=== PATIENT | male | born 1975 | race Caucasian/White ===

== ENCOUNTER 2017-08-11 16:17 | Inpatient (IN) ==
[2017-08-11] MEDS ORDERED: KEPPRA 500 MG in NS 100 ML IV ONE (16:34)
--- NOTE | 2017-08-11 16:38 | PROVIDER DOCUMENTATION ---
HPI-Neurological Disorder - General Chief Complaint: Seizure Stated Complaint: SEIZURE,RT LEG DEFORMITY Time Seen by Provider: 08/11/17 16:27 Source: patient Allergies/Adverse Reactions: Patient Allergies Allergy/AdvReac Type Severity Reaction Status Date / Time No Known Allergies Allergy Verified 08/11/17 16:40 Home Medications: Home Medication List Medication Instructions Recorded Confirmed Last Taken Type Pregabalin [Lyrica] 75 mg PO BID 08/11/17 08/11/17 Unknown History - History of Present Illness-Neuro Nature of Presenting Problem: Patient is a pleasant 42 yrs old gentleman who has come with possible seizures and a fall on the right leg . He states that probably he had seizures before but never diagnosed for that and not on the seizure medication ever.All he remembers for today is that he was at work when suddenly collapsed on his right leg and then tried to get up , collapsed again. It happened multiple times per him . Per the people witnessing at that time told the EMS that he had multiple seizure like activity as well with shaking of the whole body . He was found to be in post ictal confusion as well. Now improved . Able to give answers appropriately . Though not remember all details. Severity: reports: moderate Onset/Duration: reports: 1 hour ago Timing: reports: improving Context: reports: seizure activity Character of Altered Mental Status: reports: seizure activity, other (Now improved) Any recent trauma/injury?: reports: none New weakness or altered sensation location:: reports: none Cognitive Baseline: alert, oriented x3 Associated Symptoms: reports: denies symptoms Similar Symptoms Previously?: Yes Recently seen or treated by another doctor?: No - Seizure First time to have a seizure?: No Witnessed seizure?: Yes Episode details: reports: unknown duration, unknown number Episode Frequency: other (Never treated for that) Preceding symptoms/context:: none Character of Seizure: reports: lost consciousness, generalized shaking all over Post-ictal Symptoms: reports: confusion Seizure related injury: lower extremity Review of Systems - Adult - REVIEW OF SYSTEMS - ADULT Constitutional: reports: no symptoms reported Eyes: reports: no symptoms reported Ears, Nose, Mouth & Throat: reports: no symptoms reported Cardiovascular: reports: no symptoms reported Respiratory: reports: no symptoms reported Gastrointestinal: reports: no symptoms reported Musculoskeletal: reports: see HPI Integumentary: reports: no symptoms reported Neurological: reports: see HPI Psychiatric: reports: no symptoms reported Endocrine: reports: no symptoms reported Hematologic/Lymphatic: reports: no symptoms reported Allergic/Immunologic: reports: no symptoms reported Past History - Adult - PAST MEDICAL HISTORY-ADULT Review of Records: reports: Nursing Assessment Review Major Childhood Illnesses: reports: denies history Cardiovascular: reports: blood clots (DVT) Musculoskeletal: reports: arthritis - PRIOR SURGERIES/PROCEDURES Surgical/Procedure History: reports: tonsillectomy - IMMUNIZATION STATUS Childhood Immunizations: See Nurse Assessment Flu Vaccine: See Nurse Assessment - FAMILY HISTORY Family History: reviewed, not pertinent Physical Exam- Neurological - Physical Exam-Neuro Initial Vital Signs Reviewed: Yes General Appearance: appears well, alert, no apparent distress Eye Exam: bilateral eye: normal inspection, PERRL, EOMI HENMT: normocephalic/atraumatic, moist mucous membranes, TMs normal Head Injury: no evidence of injury Neck: non-tender Respiratory: lungs clear Cardiovascular: regular rate, rhythm, no edema Abdominal Exam: non tender, soft Extremity: other (Right leg in splint by EMS. Tender on the calf and swelling noted.) wireless engineer Exam: normal hearing, normal speech Coordination/Gait: normal finger to nose Motor/Sensory: no motor deficit, no sensory deficit Neurologic: wireless engineer II-XII nml as tested, grossly normal, no motor/sensory deficits , other Integumentary: normal color, normal turgor, warm/dry Psych/Mental Status: normal mood/affect, normal thought content, normal thought process, oriented x 3 Progress - PLAN OF CARE/RESULTS Progress/Plan/Lab Results: Vital Signs - 8 hr 08/11/17 16:22 Temperature 97.7 F Pulse Rate 83 Respiratory Rate 20 Blood Pressure 131/82 O2 Sat by Pulse Oximetry 97 Orders Category Date Time Status CT HEAD W/O CONTRAST [CT] Stat Exams 08/11/17 16:32 Completed LOWER LEG-RIGHT [RAD] Urgent Exams 08/11/17 16:32 Completed Hydrocodone/APAP 7.5 mg/325 mg [Riley-7.5] Med 08/11/17 17:12 Discontinued 1 each PO NOW ONE Levetiracetam [Keppra] 500 mg Med 08/11/17 16:34 Discontinued 0.9% Sodium Chloride Inj [Ns] [address] head is negative for any finding. The Leg x ray shows right tibia fracture. Started him here on Keppra IV. Giving him pain med. Getting his drug screen test as well and all the blood work . He was reluctant to be admitted due to his kids at home but has agreed now. Have discussed with Hospitalist service Lizzy Frandy the [facility] and he has agreed for admission . Notifying Dr. Collado the [facility] as well. Departure - Departure Date of Disposition Decision: 08/11/17 Time of Disposition Decision: 17:47 DIAGNOSIS: Seizure Disposition: HOME 01 Certified Medical Emergency: Emergent Condition: Stable Referrals and Follow-Ups: Binta Saini CRNP [Primary Care Provider] - Call for Appoint. 1-2days - Critical Care Note This patient required my direct & personal management of CC.: No Attestation - Physician/ JACQUELINE Attestation Patient care was provided by Advanced Practice Provider:: No The physician spent face to face time with patient:: Yes Advanced Practice Provider documentation review:: Supervising physician onsite and consulted in the evaluation and care of this patient. The physician did have a face to face encounter with the patient.
--- NOTE | 2017-08-11 16:59 | Diag Imaging Result Doc PS360 ---
EXAM: CT HEAD W/O CONTRAST HISTORY: Seizure TECHNIQUE: CT brain without contrast. Dose reduction protocol. COMPARISON: 04/12/2012 FINDINGS: No parenchymal hemorrhage. No epidural or subdural hematoma. No subarachnoid hemorrhage. No mass identified on this noncontrasted exam. No hydrocephalus. No sinus opacification. IMPRESSION: No hemorrhage. Negative brain CT without contrast. Electronically signed by Jonh Mai 08/11/2017 4:56 PM
--- NOTE | 2017-08-11 17:10 | Diag Imaging Result Doc PS360 ---
EXAM: LOWER LEG-RIGHT HISTORY: Fall TECHNIQUE: Four views COMPARISON: None. FINDINGS: There is an oblique fracture through the proximal fibula as well as an oblique fracture through the midshaft of the tibia. The tibial fracture is displaced approximately one centimeter with the proximal portion lying anterior to the more distal shaft. The fibular fracture is by only several millimeters. IMPRESSION: Fractures to the proximal fibula and mid to distal tibia. Electronically signed by Jonh Mai 08/11/2017 5:07 PM
[2017-08-11] MEDS ORDERED: NORCO-7.5 PO ONE (17:12)
[2017-08-11] MEDS ORDERED: DILAUDID IV ONE ×3 (17:50→19:58)
[2017-08-11] MEDS ORDERED: DILAUDID ONE (18:01)
[2017-08-11 18:38] LABS: MANUAL DIFF NEEDED? NO
[2017-08-11 18:41] LABS: BASO% 0.1 % (0.0-0.8); EOS# 0.02 X1000 (0.0-0.7); EOS% 0.1 % (0.0-10.0); HEMOGLOBIN 13.7 g/dL (14.0-18.0); IMM GRAN# 0.04 X1000 (0.0-0.04); IMM GRAN% 0.3 % (0.0-0.5); LYMPH# 1.77 X1000 (1.2-3.4); MCH 30.8 PG (27-31); MCHC 34.3 g/dL (33-37); MCV 89.9 FL (81-99); MONO# 0.69 X1000 (0.11-0.59); MONO% 4.7 % (1.7-9.3); MPV 9.2 FL (7.4-10.4); NEUT% 82.8 % (42.2-75.2); PLT 290 X1000 (130-400); RBC 4.45 XMIL (4.7-6.1)
[2017-08-11 19:05] LABS: AGAP 10; BUN 7 mg/dL (8-22); CHLORIDE 104 mmol/L (98-107); COSMO 279; SODIUM 141 mmol/L (136-145); TCO2 27 mmol/L (25-35)
[2017-08-11 20:17] LABS: URINE CULTURE NEEDED? NO; URINE MICRO REVIEW NEEDED? NO; URINE SOURCE CLEAN CATCH
[2017-08-11 20:20] LABS: BILIRUBIN URINE NEGATIVE (NEGATIVE); BLOOD URINE NEGATIVE (NEGATIVE); COLOR YELLOW; GLUCOSE URINE NEGATIVE (NEGATIVE); LEUKOCYTES URINE NEGATIVE (NEGATIVE); NITRITE URINE NEGATIVE (NEGATIVE); PH URINE 6.5; PROTEIN URINE TRACE mg/dL (NEGATIVE); TURBIDITY URINE CLEAR (CLEAR); UROBILINOGEN URINE NORMAL (NORMAL)
[2017-08-11 20:22] LABS: UR EPITHELIAL CELLS <10 /HPF (<10); URINE BACTERIA NEGATIVE /HPF; URINE RBC <10 /HPF (<10); URINE WBC <10 /HPF (<10)
[2017-08-11] MEDS ORDERED: DILAUDID IV PRN (21:18)
[2017-08-11] MEDS ORDERED: ZOFRAN IV PRN (21:18)
[2017-08-11] MEDS: OFIRMEV 1000 MG/ISOTONIC SOLN 1,000 MG/100 ML BOTTLE IV SCH (22:20)
[2017-08-11] MEDS: LOVENOX SUBQ SCH (22:24)
[2017-08-12] MEDS: DILAUDID IV PRN ×6 (01:20→20:21)
[2017-08-12] MEDS: OFIRMEV 1000 MG/ISOTONIC SOLN 1,000 MG/100 ML BOTTLE IV SCH ×4 (04:53→23:12)
[2017-08-12] MEDS: KEPPRA 500 MG in NS 100 ML IV SCH ×2 (05:58→18:14)
[2017-08-12] MEDS ORDERED: FENTANYL ONE (08:41)
[2017-08-12] MEDS ORDERED: ROBINUL ONE (08:56)
[2017-08-12] MEDS ORDERED: VERSED ONE (08:56)
[2017-08-12] MEDS ORDERED: PEPCID ONE (08:57)
[2017-08-12] MEDS ORDERED: KEFZOL 2 GM/D5W 2 GM/50 ML IVPB ONE (09:04)
[2017-08-12] MEDS ORDERED: DIPRIVAN 1% ONE (09:14)
[2017-08-12] MEDS ORDERED: XYLOCAINE-MPF 2% ONE (09:20)
[2017-08-12] MEDS ORDERED: QUELICIN (DOSE) ONE (09:20)
--- NOTE | 2017-08-12 10:37 | HISTORY AND PHYSICAL ---
CHIEF COMPLAINT: Seizure and leg fracture. HISTORY OF PRESENT ILLNESS: This is a 42-year-old, white male, who claims to have a history of undiagnosed and untreated seizures since late teen-calix. He stated that he was standing leaning against a boat talking with someone when he suddenly fell out and started shaking. He immediately popped up, but felt this sensation coming on again and tried to walk to a picnic table where he fell fracturing his right tibia and fibula. Reportedly from the history given to city maintenance manager by witnesses, he had 6 additional seizures there. The patient stated this started in late teen-calix, and he might have 1 seizure per year. Over time, this has developed into more frequent and more severe episodes. He states he has never been fully evaluated for seizure disorder. The patient traces his health problems to the time into early adulthood when he became involved with his children and in order to avoid R involvement, he stopped smoking marijuana. He states that his health has gone downhill since that time. The patient worked in a [email or web address] for about 15 years, but is now disabled due to chronic "crippling arthritis" and fibromyalgia. He has been out of his [place] that he gets from [facility] for a few days now. He states that he rarely takes it, but really relies on the combination of Lyrica and marijuana to ease his pain. He did state that he took a Percocet today that someone gave him. PAST MEDICAL HISTORY: 1. Arthritis. 2. Other chronic pain. 3. Fibromyalgia. 4. Undiagnosed seizure disorder. SOCIAL HISTORY: The patient has custody of his 3 children which he fathered through 2 different women. He does not smoke or use alcohol. He does use marijuana and narcotics when he needs them. He is most consistent with his use of Lyrica. He is totally disabled. ALLERGIES: No known drug allergies. REVIEW OF SYSTEMS: The patient denies any ongoing problems of late. He has not been ill or had fever. He has had no cough, wheezing or shortness of breath. He denies any chest pain or palpitations. He has normal bowel function and normal appetite. He has no genitourinary symptoms. Has a good urine flow. At the present time, he is complaining of pain in his right leg. He states that he can feel it grinding together. He was not placed in a fixative device of any kind at the time of my examination. He states he does have sensation in his lower extremities. He denies any head injury. PHYSICAL EXAMINATION: GENERAL: He is a well-developed, well-nourished, white male, who is in no acute distress. His speech is clear and lucid. He seems to be oriented. NECK: Unremarkable. LUNGS: Clear to auscultation in all liang. CARDIOVASCULAR: Regular. ABDOMEN: Shows bowel sounds are present. He is nontender and nondistended. He has normal size liver by percussion. GENITOURINARY/RECTAL: Not performed. EXTREMITIES: Patient's knees are facing straight up, but his right foot and ankle are rotated outwardly, and there is a small visible defect in the mid tibial area at the site of the break. He does have an abrasion on that area, but I do not see evidence of penetration by bone fragment or the main body of the tibia. I am able to feel dorsalis pedis pulses on the right foot. He has normal capillary refill. NEUROLOGIC: The patient appears to be lucid, oriented, appropriate and conversive. I do not detect any focal neurologic examinations on observation. He seems to move his arms well and can move his left leg, but is trying to keep the right leg still. LABORATORIES: White cell count of 14.7, hematocrit of 40, electrolytes were normal. Urinalysis is negative. Urine drug screen was not performed. X-ray shows a mid lower oblique tibial fracture with reasonable alignment given the severity of the injury. He has a proximal fibular fracture which has reasonable alignment as well. ASSESSMENT AND PLAN: 1. The patient will be admitted to the surgical floor. Dr. Collado has already been consulted for fracture care. At the time of my dictation, Dr. Collado was examining the patient, and trying to reduce him into a splint for proposed surgery tomorrow morning. Dr. Collado will write any antibiotic or other orthopedic orders he feels are appropriate. 2. The patient's seizure disorder could be multifactorial, not the least of which could be intermittent drug use. He was loaded with Keppra in the ER and I plan to continue Keppra IV through his surgery. He can then be transitioned to oral. If he rebounds successfully from surgery, we might also entertain a neurological consultation, because unlikely he will be able to follow up as an outpatient. 3. The patient's chronic pain will likely be addressed sufficiently by postoperative medications. 4. The patient will be put on Lovenox for DVT prophylaxis. He will be n.p.o. and confined to bed rest at the present time. cc: Jarred Parekh MD
[2017-08-12] MEDS ORDERED: BACITRACIN OINTMENT ONE (10:51)
--- NOTE | 2017-08-12 11:05 | CONSULTATION ---
DATE OF CONSULTATION: 08/12/2017 CHIEF COMPLAINT: Right leg pain. HISTORY: Patient is a 42-year-old male, that was presented to [facility] after he sustained a seizure while at home. He claims he was talking to his friend's dad while standing up and had a seizure, and ended up with a significant amount of right leg pain. Orthopedics was asked for consultation in regards to a right midshaft tibia fracture. The patient's pain is well under control at this time with medication. He is able to move his toes. Denies significant numbness in the lower extremities. PAST MEDICAL HISTORY: Includes COPD and fibromyalgia. PAST SURGICAL HISTORY: Of a tonsillectomy. PAST SOCIAL HISTORY: He denies any tobacco use. Does drink alcohol on occasion, but denies any illegal drug use. He does have 3 kids. ALLERGIES: No known drug allergies. REVIEW OF SYSTEMS: A 14 point review of systems which was obtained was negative for as above. PHYSICAL EXAM: General: Vital signs are stable. He is alert and oriented x 3. No acute distress. HEENT: Pupils equal, round, reactive to light and accommodation. Extraocular movements are intact. No blood in the nares. Head is normocephalic. Neck: Trachea is midline. Supple. Cardiovascular: There is brisk capillary refill in peripheral extremities. Lungs: Normal aeration is noted. Neurologic: Cranial nerves 2-12 are grossly intact. There are no focal deficits. Sensation is intact distally in all distal dermatomal patterns. Musculoskeletal: Examination of right lower extremity shows his calf to be soft. He is able to actively move his toes and mildly move his ankle. He does have some slight discomfort when moving the ankle, but is not out of proportion. No paresthesias are noted and his calf continues to be soft and there is no sign of compartment syndrome. ASSESSMENT: 42-year-old male status post seizure with a right midshaft tibia fracture, closed. PLAN: At this time we will place him into a splint and plan for intramedullary nailing. I discussed with him about the surgery including the risks, benefits, and complications associated with it. There are no signs of compartment syndrome. We will watch him closely overnight. I will follow him into tomorrow. cc: Ajith Collado MD
[2017-08-12] MEDS: DILAUDID ONE ×5 (11:22→11:57)
[2017-08-12] MEDS ORDERED: TORADOL ONE (11:33)
[2017-08-12] MEDS: NORCO-10 PO PRN ×2 (14:37→18:32)
[2017-08-12 15:32] LABS: UR AMPHETAMINES QUAL NONE DETECTED (NONE DETECT); UR BARBITUATES QUAL NONE DETECTED (NONE DETECT); UR BENZODIAZEPIN QUAL PRESUMPTIVE POSITIVE (NONE DETECT); UR CANNABINOIDS QUAL PRESUMPTIVE POSITIVE (NONE DETECT); UR COCAINE QUAL NONE DETECTED (NONE DETECT); UR METHADONE QUAL NONE DETECTED (NONE DETECT); UR OPIATES QUAL NONE DETECTED (NONE DETECT); UR OXYCODONE QUAL PRESUMPTIVE POSITIVE (NONE DETECT); UR PCP QUAL NONE DETECTED (NONE DETECT)
[2017-08-12] MEDS: LYRICA PO SCH (20:21)
[2017-08-12] MEDS: PERIDEX MT SCH (20:21)
[2017-08-12] MEDS: LOVENOX SUBQ SCH (20:23)
[2017-08-13] MEDS: DILAUDID IV PRN ×5 (02:02→19:32)
--- NOTE | 2017-08-13 03:54 | PROGRESS NOTE ---
DATE: 08/12/2017 SUBJECTIVE: Today, Mr. Stubbs refers to be doing a little better. Still has some pain in the right leg. Apparently, Mr. Stubbs is known to have some seizure disorder but has not been formally diagnosed. Was at some friend's house, went in seizures, sat down, and broke his right leg. He was brought in. Found to have a right proximal fibular fracture and mid tibia fracture which has been surgically intervened by orthopedics this morning. PHYSICAL EXAMINATION: Vital Signs: Blood pressure is now 131/73, pulse of 77, respirations are 18, temperature is 97.9. General Examination: Mr. Stubbs is a 42-year-old, male. He is in bed. He is not in any distress. HEENT: Mucosa is pink and moist. Anicteric and acyanotic. Neck: Supple. Chest: Clear. Cardiovascular: Regular rate and rhythm. Abdomen: Soft, nontender. Bowel sounds are present. Extremities: No pedal edema. The right is currently in orthopedic cast. Pulses are present. SOLUTIONS DELIVERY CONSULTANT: Patient is awake, oriented. There is no focal neurological deficit. LABORATORY DATA: WBC is 14.72, hemoglobin is 13.7, platelet count of 290,000. Chemistry is also reviewed, unremarkable. X-ray of the lower extremity when he came in showed fractures to the proximal fibula and mid to distal tibia. ASSESSMENT: 1. Right tibia and fibular fractures, status post intervention. 2. Seizure episode. I think patient does have an underlying seizure disorder which has not been formally diagnosed. He would need to be seen by neurology. He is currently on Keppra. 3. Chronic pain syndrome. 4. History of fibromyalgia. PLAN: In general, I think Mr. Stubbs is relatively stable. We are going to continue with his pain medications and continue with the Keppra at least for now. He will be seen by neurology either as an inpatient or as an outpatient for other evaluations. cc: Lawrence Pelaez MD
--- NOTE | 2017-08-13 04:46 | OPERATIVE NOTE ---
PROCEDURE DATE: PREOPERATIVE DIAGNOSES: 1. Right closed midshaft tibia fracture. 2. History of seizure disorder. POSTOPERATIVE DIAGNOSES: 1. Right closed midshaft tibia fracture. 2. History of seizure disorder. PROCEDURE PERFORMED: 1. Closed reduction of the right midshaft tibia. 2. Intramedullary nailing with internal fixation of the right tibia. SURGEON: Ajith Collado MD. REFINISH TECHNICIAN: None. HISTORY: The patient is a 42-year-old male who presented to the ER here at [facility] with complaints of right leg pain. He sustained a seizure and was left with a right tibia fracture. I did see him in the hospital to assure there were no signs of compartment syndrome. He did rest comfortably overnight. After evaluation, it was planned to proceed with intramedullary nailing of the right tibia. I discussed with him the risks, benefits, and complications associated with the procedure prior to proceeding. SPECIMENS: None. ANESTHESIA: General endotracheal. IMPLANTS: Include a 10 mm x 345 mm titanium Synthes jennyfer. COMPLICATIONS: None. DISPOSITION: Patient was sent to PACU in stable condition. ANTIBIOTICS: Two grams of Ancef were given IV preoperatively within 30 minutes of the incision. PROCEDURE NOTE: Patient was taken back to the operative suite and placed in the supine position. At that time, a time-out was performed for a right intramedullary nailing which was confirmed by myself and all assistants. The lower extremity was shaved and prepped using chlorhexidine scrub and ChloraPrep x2, and then draped in the normal sterile fashion. A triangle was also used at this time. At that time, I started with identifying my patella. I made a midline incision over the anterior aspect of the knee with blunt dissection down to the patellar tendon. I made a medial parapatellar arthrotomy. I then flexed the knee to place the K-wire into appropriate position. The K-wire was placed into position in the AP and lateral views. At that time, I placed a reamer, followed by a guide into the knee and reamed to 13 mm. I then placed a guidewire down the tibial shaft after reduction was performed. I then passed the guidewire into the distal aspect of the fracture fragment. At that time, I started reaming. I sequentially reamed from a size 8.5 up to an 11 for a size 10 nail. I carefully reamed without the tourniquet being inflated. I then decided on a 10 nail. At that time, I then decided on the jennyfer. The jennyfer was then passed across the fracture site and was placed into the appropriate position. I then used a guide to place my proximal screw. A 15 blade was used to make an incision in the medial aspect of the knee, followed by drilling and placement of a 40 mm screw. I then proceeded towards the distal aspect and using perfect circles, I made an incision and drilled for the distal aspect for the distal screw. The screw was then placed into the distal aspect of the nail and was confirmed to be in good position on the AP and lateral views. At that time, I thoroughly irrigated the areas, followed by final x-rays. I was very happy with the positioning of the nail. I then began closure for 0 Vicryl of the patellar arthrotomy, followed by 2-0 Vicryl in the subcutaneous tissue, followed by ivan, bacitracin, and 4x4s. The other incisions were closed with ivan, followed by an Edil wrap. The patient tolerated the procedure very well. There were no complications. He was transferred to the bed in the PACU in stable condition. cc: Ajith Collado MD
[2017-08-13] MEDS: OFIRMEV 1000 MG/ISOTONIC SOLN 1,000 MG/100 ML BOTTLE IV SCH ×4 (05:16→20:07)
[2017-08-13] MEDS: KEPPRA 500 MG in NS 100 ML IV SCH ×2 (05:16→17:49)
[2017-08-13 05:49] LABS: MANUAL DIFF NEEDED? NO
[2017-08-13 05:53] LABS: BASO% 0.1 % (0.0-0.8); EOS# 0.14 X1000 (0.0-0.7); EOS% 1.8 % (0.0-10.0); HEMATOCRIT 37.5 % (42.0-52.0); HEMOGLOBIN 12.6 g/dL (14.0-18.0); LYMPH# 2.41 X1000 (1.2-3.4); LYMPH% 30.4 % (20.5-51.1); MCH 30.8 PG (27-31); MCHC 33.6 g/dL (33-37); MCV 91.7 FL (81-99); MONO# 0.58 X1000 (0.11-0.59); MONO% 7.3 % (1.7-9.3); MPV 9.4 FL (7.4-10.4); NEUT% 60.4 % (42.2-75.2); PLT 226 X1000 (130-400); RBC 4.09 XMIL (4.7-6.1)
[2017-08-13 06:09] LABS: AGAP 7; BUN 8 mg/dL (8-22); CALCIUM 8.6 mg/dL (8.8-10.2); CHLORIDE 106 mmol/L (98-107); COSMO 279; POTASSIUM 4.3 mmol/L (3.5-5.1); SODIUM 141 mmol/L (136-145); TCO2 28 mmol/L (25-35)
[2017-08-13] MEDS: NORCO-10 PO PRN ×3 (09:17→17:45)
[2017-08-13] MEDS: LYRICA PO SCH ×3 (09:17→20:07)
[2017-08-13] MEDS: PERIDEX MT SCH ×3 (09:17→20:18)
--- NOTE | 2017-08-13 17:27 | PROGRESS NOTE ---
DATE: 08/13/2017 SUBJECTIVE: Today Mr. Stubbs refers to be doing relatively fine. Denies any complaint except for his leg pain. He said he tried to get up on his feet but he was unable because of pain. OBJECTIVELY: Vitals: Blood pressure is 154/88, pulse of 81, respiration is 18, temperature is 98.2 degrees. General exam: Mr. Stubbs is a 42-year-old male. He is in bed, not in any distress. HEENT: Mucosa is pink and moist. Anicteric. Acyanotic. Neck: Supple. Chest: Clear. Cardiovascular: Regular rate and rhythm. There is no murmurs no rubs, no gallops. Abdomen: Soft. Extremities: On the right is an orthopedic cast, the left is unremarkable. UX DESIGN MANAGER: Patient is awake and alert and oriented. LABORATORY DATA: Has been reviewed. Hemoglobin is 12.6, the rest of cell lines are normal. Chemistry is also reviewed, completely unremarkable. ASSESSMENT: 1. Right tibia and fibula fracture status post orthopedic intervention. Patient is yet to be evaluated by Physical Therapy and we will go from there. 2. Seizure episode. Patient seems to have underlying seizure disorder which has not been formally diagnosed. He has been started on Keppra. Has not had any more seizures here in the hospital. However we will consult Neurology to evaluate the patient for long-term management. 3. Chronic pain syndrome noted. 4. History of fibromyalgia. I think today Mr. Stubbs is stable. Will be pending evaluation from PT to know if the patient will be able to go home or will be needing an inpatient rehab. Neurology will also evaluate the patient for the seizure disorders. cc: Lawrence Pelaez MD
[2017-08-13] MEDS: LOVENOX SUBQ SCH ×2 (19:56→20:07)
--- NOTE | 2017-08-13 20:39 | PROGRESS NOTE ---
DATE: 08/13/2017 ORTHOPEDICS: Postoperative day 1 of intramedullary nailing of the right tibia for a closed tibial shaft fracture. SUBJECTIVE: The patient is doing well today. His pain is much improved. He is elevating the extremity and denies any paresthesias in the right foot. He does claim to have some discomfort, but definitely is much improved from where he was. He did get up with physical therapy today and tolerated it; however, he was unable to walk with a walker due to his height. OBJECTIVE: Gross motor and sensory is intact in the right lower extremity. His calves are soft. No signs of compartment syndrome. His dressing is clean, dry, and intact. No drainage on the dressing is noted. SCDs are on the left lower extremity. PLAN: He is doing well. Okay to discharge from an Orthopedic standpoint. I do understand that he has a Neurology consult for tomorrow for his seizures. I would continue to recommend Lovenox for 14 days. He will continue to be nonweightbearing on the right lower extremity with the crutches. He can follow up with me in 1 week. Call if there is any questions or concerns. cc: Ajith Collado MD
[2017-08-14] MEDS: DILAUDID IV PRN ×4 (00:19→12:14)
[2017-08-14] MEDS: OFIRMEV 1000 MG/ISOTONIC SOLN 1,000 MG/100 ML BOTTLE IV SCH ×2 (04:54→12:18)
[2017-08-14] MEDS: KEPPRA 500 MG in NS 100 ML IV SCH (05:13)
[2017-08-14] MEDS: PERIDEX MT SCH (08:51)
[2017-08-14] MEDS: LYRICA PO SCH (08:51)
[2017-08-14] MEDS: NORCO-10 PO PRN ×2 (10:38→15:24)
--- NOTE | 2017-08-14 15:50 | PROGRESS NOTE ---
DATE: 08/14/2017 SUBJECTIVE: Mr. Stubbs is a 42-year-old male who is postoperative day 2 from an intramedullary nailing of the right tibia for a closed tibial shaft fracture. He has no new complaints. OBJECTIVE: He is well developed, well-nourished male. He is alert, oriented, cooperative with the examination. His vital signs are stable. He is afebrile. He has been ambulating well with physical therapy. Today he walked 200 feet. His wound is clean, dry and intact without sign of infection. His calf is soft. His right leg is neurovascularly intact. ASSESSMENT: Stable postoperative day 2 from intramedullary nailing of the right tibia. PLAN: We will continue working with him with physical therapy and continue to manage his pain. He can be discharged home when he is medically stable. He is to follow up with Dr. Collado in the office after discharge. Dictated by JOHN Calle for Josh Montez MD cc: JOHN Calle MD MTDD
[2017-08-14 16:29] VITALS: BP 130/84
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
--- NOTE | 2017-08-14 17:13 | PROGRESS NOTE ---
DATE: 08/14/2017 SUBJECTIVE: Today, Mr. Stubbs referred to be doing a lot better and he is actually hoping to go home. He has been seen by Neurology and there has been an order for an EEG so we are just waiting for that before the patient can be discharged. OBJECTIVE: Vital Signs: Stable. Blood pressure is 141/88, pulse of 83, respirations 18, temperature 98.5 degrees. General: Mr. Stubbs is a 42-year-old, male. He is in bed. He is not in any distress. HEENT: Mucosa is pink and moist. Anicteric. Acyanotic. Neck: Supple. Chest: Clear. Cardiovascular: Regular rate and rhythm. There is no murmurs. No rubs, no gallops. Abdomen: Soft, nontender. Extremities: The right lower extremity, the cast has been removed and it is now just in a bandage. TALEND DEVELOPER: Patient is awake and alert and oriented. LABORATORY STUDIES: No lab work for today. ASSESSMENT: 1. Right tibia and fibular fracture status post orthopedic intervention. Today is day 2 postop. I spoke personally with Dr. Montez and from orthopedic standpoint patient could go home. 2. Seizure disorder. Patient refers to have had multiple seizures in the past. He has never seen a neurologist. He was started on Keppra this time. Neurology has been consulted and there is an order for an EEG. It will be pending their final recommendations and hopefully can get the patient discharged either today or tomorrow. 3. Chronic pain syndrome. Patient noted. 4. History Fibromyalgia. So in general from an orthopedic standpoint it appears patient could be discharged. Neurology was consulted because of longstanding seizure disorder that has not been treated. An EEG has been done. We are pending the results and the final recommendations from Neurology, so we can get the patient discharged. cc: Lawrence Pelaez MD
--- NOTE | 2017-08-14 18:32 | EEG REPORT ---
DATE: 08/14/2017 REFERRING PHYSICIAN: Dr. Hernandez, Dr. Pelaez. EEG #: [id number] CHEMISTRY SPECIALIST: Xin Canseco. BACKGROUND INFORMATION/TECHNIQUE: A digitally recorded EEG is obtained with 1 additional channel for EKG. HISTORY OF PRESENT ILLNESS: 42-year-old male with remote history of seizure presenting with a question of seizure. EEG is obtained to evaluate for possible seizures. MEDICATIONS: Include Dilaudid p.r.n., Keppra, Lyrica, [place] p.r.n. EEG FINDINGS: A moderately well-formed 9 Hz posterior dominant alpha rhythm is seen symmetrically in the occipital regions. At maximal alertness the background anteriorly consists of mixed alpha and beta range frequencies. Intermittent diffuse 5 hertz theta range slowing is noted throughout the study. No epileptiform discharges and no seizure seen. Hyperventilation induced mild diffuse physiologic slowing. Photic stimulation did not alter the record. The patient becomes drowsy but stage II sleep is not achieved. EKG demonstrates irregular RR intervals. IMPRESSION AND CLINICAL CORRELATION: Normal routine EEG in the awake and drowsy states. Of note, a normal EEG does not rule out epilepsy. Intermittent diffuse theta slowing is of unclear clinical significance and may represent drowsiness. Also of note the EKG strip demonstrated irregular RR intervals throughout the study. Clinical correlation is advised. cc: Esha Hernandez MD [facility]
[2017-08-14] MEDS ORDERED: KEPPRA PO SCH (21:00)
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
== END 2017-08-14 18:10 | disposition home or self-care (01) ==
LOC: ED 16:17 → 4N 20:47 → SUATTDRO 20:47
PROVIDERS: ATTEND Internal Medicine